=== PATIENT | female | born 1980 | race Caucasian/White ===

== ENCOUNTER 2017-12-19 13:21 | Emergency (ER) | payer OTHER ==
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
[2017-12-19 14:03] VITALS: BP 129/55
== END 2017-12-19 14:16 | disposition home or self-care (01) ==
LOC: UCCORT 13:21
DX: J30.2 Other seasonal allergic rhinitis (principal); Z88.0 Allergy status to penicillin
CPT/HCPCS: 99212; G0463